=== PATIENT | female | born 1985 | race Caucasian/White ===

== ENCOUNTER 2022-05-26 08:43 | Emergency (ER) | payer OTHER ==
[2022-05-26] MEDS ORDERED: Albuterol/Ipratropium 3.0-0.5 MG/3 ML Neb Soln NEB ONE (09:09)
== END 2022-05-26 09:46 | disposition home or self-care (01) ==
LOC: VM.ED 08:43 → MERGE 08:43 → VM.ED 09:46
DX: J20.9 Acute bronchitis, unspecified (principal)
CPT/HCPCS: 94640; 99283; J7620-GY